=== PATIENT | male | born 1995 | race African-American/Black ===

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

== ENCOUNTER 2019-09-28 18:39 | Emergency (ER) | payer SELFPAY ==
[2019-09-28 18:48] VITALS: BP 116/68; PULSE 68; TEMP 98.1; BMI 22.1
--- NOTE | 2019-09-28 19:03 | PDOC ---
History of Present Illness - General Chief Complaint: Wound Stated Complaint: CHEKING FOR VD Time Seen by Provider: 09/28/19 18:49 History Source: Patient Exam Limitations: No Limitations - History of Present Illness Initial Comments: 09/28/19 18:58 24-year-old male presents to the ED requesting to be tested for chlamydia. Patient states was told by a sexual partner that he had she was positive for chlamydia. Patient states that secondary to present denies any symptoms at this time. Patient denies other sexual partners. patient also denies abdominal pain, penile discharge, or dysuria. Is this a multiple visit Asthma Patient?: No Timing/Duration: unsure Associated Symptoms: reports: denies symptoms Past History - Travel History Traveled outside of the country in the last 30 days: No Close contact w/someone who was outside of country & ill: No - Medical History Allergies/Adverse Reactions: Allergies Allergy/AdvReac Type Severity Reaction Status Date / Time No Known Allergies Allergy Verified 07/05/16 21:31 Home Medications: Ambulatory Orders NK [No Known Home Medication] 09/28/19 COPD: No Other medical history: STI 2016 - Psycho-Social/Smoking History Patient Lives Alone: No Lives with/in: parents Smoking History: Unknown if ever smoked - Substance Abuse Hx (Audit-C & DAST Scrn) How often the patient has a drink containing alcohol: Monthly or less How often the patient has six or more drinks on one occasion: Never Score: In Men: 4 or > Positive; In Women: 3 or > Positive: 1 Screen Result (Pos requires Nsg. Audit-10AR): Negative In the last yr the pt used illegal drug/Rx for NonMed reason: No Score: Yes response is considered Positive: 0 Screen Result (Positive result requires Nsg. DAST-10): Negative Review of Systems - Review of Systems Able to Perform ROS?: No Is the patient limited Hungarian proficient: No Constitutional: No: Symptoms Reported HEENTM: No: Symptoms Reported Respiratory: No: Symptoms reported Cardiac (ROS): No: Symptoms Reported ABD/GI: No: Symptoms Reported : No: Symptoms Reported Musculoskeletal: No: Symptoms Reported Integumentary: No: Symptoms Reported Neurological: No: Symptoms reported Endocrine: No: Symptoms Reported Hematologic/Lymphatic: No: Symptoms Reported *Physical Exam - Vital Signs Last Vital Signs Temp Pulse Resp BP Pulse Ox 98.1 F 68 14 116/68 99 09/28/19 18:46 09/28/19 18:46 09/28/19 18:46 09/28/19 18:46 09/28/19 18:46 - Physical Exam General Appearance: Yes: Nourished, Appropriately Dressed. No: Apparent Distres s HEENT: positive: EOMI Neck: positive: Supple Respiratory/Chest: negative: Respiratory Distress Gastrointestinal/Abdominal: negative: Distended, Tenderness Male Genitalia: positive: normal genitalia (circumsized). negative: discharge, testicular tenderness, testicular mass Extremity: positive: Normal Inspection Integumentary: positive: Normal Color, Warm, Moist Neurologic: positive: Motor Strength 5/5 (ambulatory) Medical Decision Making - Medical Decision Making 09/28/19 19:02 Chief complaint: Patient requesting chlamydia testing since he was told by the sexual partner that he was exposed. Patient has no complaints and states he has had chlamydia for so was familiar with symptoms. Patient also requesting HIV testing. Exam: Normal PE vital signs stable. Plan: GC chlamydia along with HIV testing ordered 09/28/19 20:58 Laboratory Tests 09/28/19 19:00 HIV Ag/Ab Combo Qual Negative Patient to be discharged and will be notified of STD results. Discharge - Discharge Information Problems reviewed: Yes Clinical Impression/Diagnosis: Encounter for assessment of STD exposure Condition: Good Disposition: HOME - Follow up/Referral - Patient Discharge Instructions Patient Printed Discharge Instructions: Facts About Sexually Transmitted Infections Additional Instructions: You will be notified of your STD results within 3-5 business days in the meanwhile do not have intercourse - Post Discharge Activity
== END 2019-09-28 21:02 | disposition home or self-care (01) ==
LOC: JERFT 18:39
DX: Z11.3 Encounter for screening for infections with a predominantly sexual mode of transmission (principal)
CPT/HCPCS: 36415; 87389; 87491; 87591; 99283-25

== ENCOUNTER 2020-09-07 17:22 | Emergency (ER) | payer OTHER ==
[2020-09-07 17:42] VITALS: BP 130/77; PULSE 65; TEMP 98.9; BMI 26.5
[2020-09-07 20:38] LABS: SYPHILIS W/ RPR CONF NON-REACTIVE (NONREACTIVE)
[2020-09-07 21:07] LABS: HIV INTERPRETATION NEGATIVE (NEGATIVE)
== END 2020-09-07 19:48 | disposition home or self-care (01) ==
LOC: JERFT 17:22
DX: Z11.3 Encounter for screening for infections with a predominantly sexual mode of transmission (principal)
CPT/HCPCS: 36415; 86780; 86803; 87340; 87389; 87491; 87591; 99283-25